=== PATIENT | male | born 1950 | race African-American/Black ===

== ENCOUNTER → 2017-10-27 | Outpatient (CLI) | payer MEDICARE, MEDICAID ==
--- NOTE | 2017-10-27 16:42 | Diagnostic Imaging Report ---
Indication: Neck pain. Radiculopathy. Technique: Sagittal T1 FLAIR PROPELLER, sagittal T2 PROPELLOR, sagittal STIR, axial T2 PROPELLER, axial 3D COSMIC ASPIR images were obtained through the cervical spine Comparison: none Findings: Exam limited by significant patient motion. This particularly degrades the sagittal T2 and axial T2/cosmic ASPIR images, particularly through the lower cervical spine. Within these limitations: No definite abnormality is noted at the craniocervical junction. Imaged portions of the posterior fossa unremarkable in appearance. A 6 mm T2 hyperintense circumscribed structure is noted within the right parotid gland, possibly a cyst. Vertebral body heights are within normal limits and bone marrow signal is homogeneous. There is no evidence of compression fracture. No definite focal cord signal abnormality is identified. At C2-C3: There is no significant central canal stenosis or foraminal narrowing. At C3-C4: small disc bulge exerts mass effect on the anterior aspect of the thecal sac resulting in mild central canal stenosis; CSF signal is noted anterior and posterior to the cord at this level on sagittal views. There is no appreciable significant foraminal narrowing at this level. At C4-C5: Mild symmetrical disc bulge results in mild to moderate central canal stenosis at this level and apparent mild left-sided foraminal narrowing. At C5-C6: Disc bulge results in moderate central canal stenosis and apparent mild to moderate left-sided foraminal narrowing. At C6-C7: There is no significant central canal stenosis or appreciable significant foraminal narrowing. IMPRESSION: Significant motion artifact degrades exam. Within these limitations: Degenerative change of the cervical spine most pronounced at C5-C6 where disc disease results in apparent moderate central canal stenosis and moderate left-sided foraminal narrowing. No definite focal cord signal abnormality. Consider repeat exam for more reliable assessment as clinically indicated.
--- NOTE | 2017-10-27 17:17 | Diagnostic Imaging Report ---
Indication: Shoulder pain Technique: MRI of the left shoulder obtained in a 1.5 Leann magnet. Pulse sequences obtained include axial and coronal proton fast spin-echo with fat saturation, sagittal T1 fast spin-echo, sagittal and coronal T2 fast spin-echo with fat saturation. Findings: There is no acute fracture or evidence of osteonecrosis. There is a low-grade partial-thickness intrasubstance tear at the insertion of the infraspinatus tendon. There is a high-grade tear of the supraspinatus tendon with only a few intact bursal sided fibers identified. This is in the setting of a severe supraspinatus tendinosis. There is no associated retraction or muscle atrophy. Teres minor intact. There is mild subscapularis tendinosis. There is fluid within the biceps tendon sheath. Long of the biceps tendon demonstrates intrasubstance fissuring without tendon retraction. There is trace subacromial and subdeltoid bursal fluid. There is acromioclavicular arthrosis with capsular hypertrophy. There is a nondisplaced tear of the superior labrum. There is overall [id number] cartilage wear with focal high-grade chondral were over the humeral head posterior medially (series 4 image #[id number]) with some subchondral marrow edema. IMPRESSION: * Rotator cuff tendinosis as above with high-grade near complete tear of the supraspinatus tendon with only a few intact bursal sided fibers visualized. * Biceps tendinosis with intrasubstance fissuring. * Significant chondral wear.
== END | disposition home or self-care (01) ==
LOC: MRI 09:09
DX: M50.220 Other cervical disc displacement, mid-cervical region, unspecified level (principal); M75.122 Complete rotator cuff tear or rupture of left shoulder, not specified as traumatic
CPT/HCPCS: 72141

== ENCOUNTER → 2020-01-26 | Outpatient (CLI) | payer MEDICARE, BC, OTHER ==
--- NOTE | 2020-01-26 15:05 | Diagnostic Imaging Report ---
Indication: Neck pain Technique: Sagittal T1 FLAIR PROPELLER, sagittal T2 PROPELLOR, sagittal STIR, axial T2 PROPELLER, axial 3D COSMIC ASPIR images were obtained through the cervical spine Comparison: 10/27/2017 Findings: Bone alignment is normal. Vertebral body heights are preserved. Vertebral body marrow signal is preserved. The cord signal is normal. At C3-4, there is broad-based posterior disc protrusion. This results in mild narrowing of the spinal canal. This appears similar to the previous exam. The neural foramina are preserved. At C4-5, there is mild circumferential annular bulge. This results in borderline narrowing of the spinal canal. There is moderate narrowing of the left neural foramen and mild narrowing of the right neural foramen. There is mild degenerative narrowing the disc. At C5-6, there is circumferential annular bulge as well as right paracentral posterior disc protrusion, the latter demonstrating a high intensity zone. This is also evident previously. There is resultant mild to moderate spinal canal narrowing. There is moderate neural foraminal narrowing on the left. The right neural foramen is preserved. There is mild degenerative narrowing of the disc. At the remaining disc levels, no significant disc bulge or protrusion, spinal stenosis, or neural foraminal narrowing. Included extraspinal soft tissues are unremarkable. Impression: Multilevel degenerative changes, as described above No acute bony trauma
--- NOTE | 2020-01-27 14:43 | Diagnostic Imaging Report ---
EXAM: MRI MRI LT Shoulder no Contrast TECHNIQUE: MR images of the shoulder includes sagittal T2, coronal proton density and fat-suppressed T2 sequences as well as axial proton density and T1 sequences. CLINICAL HISTORY: Shoulder pain. COMPARISON: 10/27/2017 FINDINGS: There is normal marrow signal. There is no fracture, bony lesions or erosions. Mild degenerative hyperostosis of the AC joint and acromial spurring again noted contributing to narrowing of the impingement space. There is a tear in the distal supraspinatus tendon as noted on prior exam. A small amount of subacromial and subdeltoid fluid noted confirming transmural nature of the tear. The infraspinatus and subscapularis tendons are intact. Biceps tendon sits appropriately in the bicipital groove. The labrum and glenohumeral ligaments appear unremarkable. IMPRESSION: REDEMONSTRATION OF TRANSMURAL TEAR IN THE DISTAL SUPRASPINATUS TENDON WITH SMALL AMOUNT OF SUBACROMIAL SUBDELTOID FLUID NOTED.
== END | disposition home or self-care (01) ==
LOC: MRI 10:55
DX: M75.122 Complete rotator cuff tear or rupture of left shoulder, not specified as traumatic (principal); M50.220 Other cervical disc displacement, mid-cervical region, unspecified level
CPT/HCPCS: 72141